=== PATIENT | female | born 1950 | race Caucasian/White ===

== ENCOUNTER 2016-03-10 17:17 | Emergency (ER) | payer MEDICAID, OTHER ==
[2016-03-10] MEDS ORDERED: KETOROLAC 30 MG/1 ML SDV IVP ONE (17:43)
[2016-03-10] MEDS ORDERED: DIAZEPAM 10 MG/2 ML SYR IVP ONE (17:43)
[2016-03-10] MEDS ORDERED: fentaNYL 100 MCG/2 ML INJ IVP ONE (17:43)
--- NOTE | 2016-03-10 17:56 | DX ---
Right shoulder series 2 views 1740 hours. History: Pain after a fall. Findings: There appears be anterior dislocation of the right humeral head. There is no evidence of fr acture seen associated with the right scapula as well as clavicle and proximal humerus. Visualized ri ght ribs also appear to be intact. Impression: 1. Anterior dislocation suspected at the right humeral head. 2. No definite fracture, however, only 2 views could be obtained. Consider postreduction imaging.
--- NOTE | 2016-03-10 17:58 | EDPHY ---
H & P HPI/ROS: CHIEF COMPLAINT: right shoulder pain HISTORY OF PRESENT ILLNESS: Patient is a 62-year-old female who presents to the emergency department after slipping on ice on her right outstretched arm. She developed sudden significant pain in her right shoulder. Her pain is severe. It does not radiate. She has had difficulty moving her right arm due to pain. She denies striking her head. She did not lose consciousness. No nausea or vomiting. She has no neck or back pain. She has no shortness of breath, chest pain or abdominal pain. She is able to ambulate. REVIEW OF SYSTEMS: My complete review of systems is negative except as mentioned in the HPI. Past Medical/Surgical History: Includes endometrial cancer Includes hysterectomy Smoking Status: Former smoker Physical Exam: Vitals noted GENERAL: No acute distress, alert. Sitting comfortably in the bed HEAD: No evidence of trauma. EYES: PERRLA, EOMI, normal to inspection. ENT: Airway intact, normal external examination. NECK: The trachea is midline. There is no crepitus. The C-spine is nontender. NEXUS criteria is negative (no midline tenderness, no distracting injury, no altered mental status, no recent alcohol use, no focal neurologic deficit). RESPIRATORY: Clear to auscultation bilaterally, no rales, rhonchi or wheezing. There is no crepitus or palpable rib fractures. CVS: Regular rate and rhythm, no rubs, murmurs, or gallops. ABDOMEN: Soft, nontender, nondistended Pelvis: Stable. No tenderness palpation. Hips full range of motion. BACK: No spinal tenderness, no spinal step off, no notable bruising or abrasions. SKIN: Normal color, warm, dry. No pallor or diaphoresis. EXTREMITIES: Right upper extremity: Patient has a step-off deformity of her right shoulder. She has tenderness palpation over the deltoid. There is no crepitus or palpable mass. Her clavicles has no swelling or tenderness to palpation. Scapula has no tenderness to palpation Left upper extremity: Atraumatic. No visible signs of trauma. No tenderness palpation. Neurovascular intact distally. Right lower extremity: Atraumatic. No visible signs of trauma. No tenderness palpation. Neurovascular intact distally. Left lower extremity: Atraumatic. No visible signs of trauma. No tenderness palpation. Neurovascular intact distally. Atraumatic, neurovascularly intact distally in all extremities, pelvis is stable , hips with full range of motion, moves all extremities freely. NEURO/PSYCH: Alert and oriented x 3, GCS 15, normal mood and affect, normal motor sensory exam. Constitutional: Initial Vital Signs Temperature (C) 36.4 C 03/10/16 17:24 Heart Rate 80 03/10/16 17:24 Respiratory Rate 16 03/10/16 17:24 Blood Pressure 175/95 H 03/10/16 17:24 O2 Sat (%) 97 03/10/16 17:24 O2 Delivery Mode Room Air Allergies/Adverse Reactions: aspirin Allergy (Severe, Verified 07/03/14 12:14) diaphoresis ethyl chloride Allergy (Severe, Verified 07/03/14 12:14) Hives Sulfa (Sulfonamide Antibiotics) Allergy (Severe, Verified 07/03/14 12:14) Hives Home Medications: Medication Instructions Recorded Herbals/Supplements -Info Only 1 each PO AD 05/08/12 Ibuprofen [Motrin (*)] 400 mg PO Q8 PRN 05/08/12 Methyl Salicylate/Menthol [Bengay 1 massiel TP QID PRN 05/08/12 (*)] Naproxen Sodium [Aleve 220 MG (*)] 220 mg PO BID PRN 01/18/13 Famotidine [Pepcid 20 MG (*)] 20 mg PO DAILY PRN 07/03/14 Ondansetron Odt [Zofran Odt 4 mg 4 mg PO QID PRN 07/03/14 (*)] Medical Decision Making ED Course/Re-evaluation: In the emergency department I discussed possible etiologies with the patient. I answered all her questions. IV was placed. The patient was given fentanyl 100 mcg IV for pain control. She was subsequently given Valium 5 mg IV for muscle relaxation. Right shoulder x-ray: Patient has a right shoulder dislocation. I discussed the result with the patient. Procedure: Right shoulder reduction Discussed the risks and benefits of relocation. She consented. Using massage over the deltoid and elevation of the right arm I was able to reduce the right shoulder. Patient had minimal distress during the procedure. Post reduction she was neurovascularly intact distally. She was placed in a shoulder sling. Repeat x-ray was ordered. Differential Diagnosis: My differential includes but is not limited to fracture, dislocation, contusion , sprain, closed-head injury, spinal injury - Data Points Medications Given: Discontinued Medications Diazepam (Valium Injection) 5 mg IVP EDNOW ONE Stop: 03/10/16 17:44 Last Admin: 03/10/16 17:55 Dose: 5 mg Fentanyl (Sublimaze) 100 mcg IVP EDNOW ONE Stop: 03/10/16 17:44 Last Admin: 03/10/16 17:52 Dose: 100 mcg Ketorolac Tromethamine (Toradol) 30 mg IVP EDNOW ONE Stop: 03/10/16 17:44 Last Admin: 03/10/16 17:52 Dose: 30 mg Departure - Departure Disposition: Home, Routine, Self-Care Clinical Impression: Dislocation of right shoulder joint Qualifiers: Encounter type: initial encounter Qualifier Code: (S43.004A) Unspecified dislocation of right shoulder joint, initial encounter Condition: Good Instructions: Shoulder Dislocation (ED) Additional Instructions: Return with increasing pain, weakness, numbness or any other concerns. You need close follow-up with Orthopedics. Keep your shoulder sling in place. Referrals: Nilay Miles MD [Medical Doctor] - 5-7 days, call for appt.
--- NOTE | 2016-03-10 18:58 | DX ---
Two views, right shoulder - March 10, 2016, at 1810 hours Clinical indication: Post reduction. Comparison: March 10, 2016 at 1740 hours Findings: AP and scapular Y views were performed. There is relocation of the humeral head into the g lenoid fossa. No definite fracture. The acromioclavicular joint is unremarkable. The adjacent ribs ar e normal. Impression: Normal anatomic positioning post reduction.
[2016-03-10 19:04] VITALS: BP 132/81; PULSE 87; RESP 15; TEMP 98.1; O2SAT 99
== END 2016-03-10 19:03 | disposition home or self-care (01) ==
PROC: 0RSJXZZ Reposition Right Shoulder Joint, External Approach (ICD-10-PCS; principal; 2016-03-10)
DX: S43.004A Unspecified dislocation of right shoulder joint, initial encounter (principal); Z85.42 Personal history of malignant neoplasm of other parts of uterus; Z87.891 Personal history of nicotine dependence; W00.0XXA Fall on same level due to ice and snow, initial encounter
CPT/HCPCS: 23650; 73030; 96374; 96375; 99284; A4565; J1885; J3010